=== PATIENT | male | born 1990 | race Caucasian/White ===

== ENCOUNTER 2021-03-01 08:29 | Emergency (ER) | payer OTHER, SELFPAY ==
[2021-03-01 08:38] VITALS: BP 126/86; PULSE 90; RESP 16; TEMP 37; O2SAT 100
--- NOTE | 2021-03-01 09:09 | ED.GENADULT ---
HPI - General Adult General Chief complaint: Skin/Abscess/Foreign Body Stated complaint: lump on buttocks Time Seen by Provider: 03/01/21 09:04 Source: patient Mode of arrival: ambulatory Limitations: no limitations History of Present Illness HPI narrative: Patient is here for evaluation of a abscess on his buttocks. He said he has had 2 previous abscesses that self resolved. This 1 came up quickly is quite painful, he has had a low-grade temp of 99 7 last night and is feeling nauseous. He is not diabetic, he has no chronic illness. Onset (ago): hour(s) Location: buttocks Radiation: non-radiation Severity: severe Quality: sharp Pain Consistency: constant Relieving factors: none Exacerbating factors: movement Associated symptoms: denies other symptoms Related Data Allergies Allergy/AdvReac Type Severity Reaction Status Date / Time No Known Allergies Allergy Mild Unverified 03/01/21 08:41 Review of Systems Review of Systems: All systems reviewed & are unremarkable except as noted in HPI and below PMFSH Past Medical History Medical History (Updated 03/01/21 @ 10:10 by Terri Sampson PA-C) Dante-rectal abscess Social History Social History (Updated 03/01/21 @ 10:00 by Terri Sampson PA-C) Smoking status: Never smoker Alcohol intake: never Substance use: never Living arrangements: with family Exam Const: General: no acute distress and alert Orientation/consciousness: patient oriented x3 HENMT: Head: normal to inspection Eyes: Pupils: Equal, round and reactive pupils present Resp: Effort & Inspection: normal respiratory effort Auscultation: clear to auscultation bilaterally Cardio: Rate: regular rate Rhythm: regular rhythm GI: Rectal Exam: normal sphincter tone Other: There is a firm abscess to the right of the rectum. There is no palpable mass and internal rectal exam. There is a small area that appears to be fluctuant, the remaining area is firm. Skin: General skin exam: normal color Extrem: General: normal to inspection Psych: Mental Status: mental status grossly normal Course Vital Signs Vital signs: Vital Signs Temperature 37.0 C 03/01/21 08:38 Pulse Rate 90 03/01/21 08:38 Respiratory Rate 16 03/01/21 08:38 Blood Pressure 126/86 03/01/21 08:38 Pulse Oximetry 100 03/01/21 08:38 Temperature 37.0 C 03/01/21 08:38 Pulse Rate 90 03/01/21 08:38 Respiratory Rate 16 03/01/21 08:38 Blood Pressure 126/86 03/01/21 08:38 Pulse Oximetry 100 03/01/21 08:38 Procedures Abscess I/D dante-rectal: Date of Incision: 03/01/21 Time of Incision: 10:00 Side (if applicable): right Local Anesthetic: lidocaine 1% Amount of anesthesia used (mL): 1.5 Technique: incised with #11 blade Amount of fluid expressed (mL): 0 Irrigation: No Medical Decision Making Vital Signs Vital Signs: Vital Signs Temperature 37.0 C 03/01/21 08:38 Pulse Rate 90 03/01/21 08:38 Respiratory Rate 16 03/01/21 08:38 Blood Pressure 126/86 03/01/21 08:38 Pulse Oximetry 100 03/01/21 08:38 Temperature 37.0 C 03/01/21 08:38 Pulse Rate 90 03/01/21 08:38 Respiratory Rate 16 03/01/21 08:38 Blood Pressure 126/86 03/01/21 08:38 Pulse Oximetry 100 03/01/21 08:38 Discharge Plan Discharge Clinical Impression: Dante-rectal abscess Patient Disposition: Home, Self-Care Condition: Stable Instructions: Antibiotic Form, Rectal Abscess (ED) Additional Instructions: Unable to drain your abscess today as it is very firm. Complete your antibiotics as prescribed. Use pain medication carefully. Do sitz bath's 3-4 times a day and attempt to express any material from the area. If not improving by the weekend please call your primary care physician for follow-up appointment. Return to the ED should you have fever greater than 100.4 not responsive to ibuprofen or Tylenol. Prescriptions: New toi
[2021-03-01 10:47] VITALS: BP 127/84; PULSE 88; RESP 16; O2SAT 100
== END 2021-03-01 10:48 | disposition home or self-care (01) ==
PROVIDERS: Emergency Provider Emergency Medicine
DX: K61.1 Rectal abscess (principal)
CPT/HCPCS: 10060; 99282

== ENCOUNTER 2021-12-05 18:29 | Emergency (ER) | payer OTHER, SELFPAY | END 2021-12-05 19:41 | disposition left against medical advice (07) | PROVIDERS: Emergency Provider Internal Medicine Hematology & Oncology | DX: Z53.21 Procedure and treatment not carried out due to patient leaving prior to being seen by health care provider (principal) | CPT/HCPCS: 99199 ==

== ENCOUNTER 2023-01-20 11:31 | Emergency (ER) | payer OTHER, SELFPAY ==
--- NOTE | ~2023-01-20 | XR_ITS ---
XR abdomen/kub 1V 01/20/2023 12:04 INDICATION: Bilateral flank pain. Trace blood in urine. TECHNIQUE: KUB COMPARISON: None FINDINGS: Bowel gas pattern is normal. There is no evidence of free air, mass, organomegaly, ascites or obstruction. No abnormal calculi are seen. The bones appear intact. IMPRESSION: 1: No acute abdominal abnormality identified. Reviewed, dictated and finalized at location A.
[2023-01-20 11:41] VITALS: BP 108/65; PULSE 87; RESP 16; TEMP 36.8; O2SAT 99
--- NOTE | 2023-01-20 11:54 | ED.MALEGU ---
HPI - Male Genitourinary General Chief complaint: Urogenital-Male Stated complaint: UTI Time Seen by Provider: 01/20/23 11:54 Source: patient Mode of arrival: ambulatory Limitations: no limitations History of Present Illness HPI Narrative: 32-year-old male presents with complaint low back pain for 2 days. Concerned he has kidney stone due to dribbling, urinary frequency. No history of kidney stones. Has taken ibuprofen which has helped with pain somewhat. Denies nausea vomiting diarrhea. Afebrile. Denies injury. All Systems reviewed and negative except as noted above. Related Data Allergies Allergy/AdvReac Type Severity Reaction Status Date / Time No Known Allergies Allergy Mild Verified 01/20/23 11:40 Review of Systems Review of Systems: CONSTITUTIONAL: Denies fever, chills, or sweats. EYES: Denies visual changes, redness, or discharge. ENT: Denies rhinorrhea, congestion, sore throat, or otalgia. CARDIOVASCULAR: Denies chest pain, palpitations, or edema. RESPIRATORY: Denies cough or dyspnea. GASTROINTESTINAL: Denies abdominal pain, nausea, vomiting, or diarrhea. GENITOURINARY: frequency, dribbling. Denies dysuria or hematuria. SKIN: Denies rash or itching. MUSCULOSKELETAL: reports back pain. Denies joint pain, or myalgia. NEUROLOGIC: Denies headache, numbness, or weakness. PSYCHIATRIC: Denies anxiety or depression. All other systems reviewed are negative, except as documented in HPI. [facility] Past Medical History Medical History (Updated 01/20/23 @ 12:18 by Urmila Cooper NP) Jeni-rectal abscess Social History Social History (Updated 03/01/21 @ 10:00 by Terri Sampson PA-C) Smoking status: Never smoker Alcohol intake: never Substance use: never Living arrangements: with family Comments At time of signature, agree with nursing past medical, surgical, social and family history. There is no relevant family history pertinent to the presenting complaint. Exam Narrative: GENERAL: This is a well-nourished, well-developed patient, in no apparent distress. HEAD: normocephalic, atraumatic. EYES: PERRL. Sclera clear/white. Vision is grossly intact. EARS: External ears normal NOSE: External nose normal NECK: Neck supple, non-tender without lymphadenopathy, masses or thyromegaly. CARDIOVASCULAR: Regular rate and rhythm without murmurs, gallops, or rubs. RESPIRATORY: Clear to auscultation. Breath sounds equal bilaterally. No wheezes, rales, or rhonchi. GASTROINTESTINAL: Abdomen soft, non-tender, nondistended. Bowel sounds are active. No hepato-splenomegaly, or palpable masses. No guarding. SKIN: warm, Dry, intact with no suspicious lesions or rash, good texture and turgor. NEURO: awake, alert, and oriented to person, place and time. There were no obvious focal neurologic abnormalities. EXTREMITIES: No joint tenderness, effusion, or edema noted. BACK: Nontender without deformity. No CVA tenderness. Course Course Level of Care: Express Care Visit Vital Signs Vital signs: Vital Signs Temperature 36.8 C 01/20/23 11:41 Pulse Rate 87 01/20/23 11:41 Respiratory Rate 16 01/20/23 11:41 Blood Pressure 108/65 01/20/23 11:41 Pulse Oximetry 99 01/20/23 11:41 Oxygen Delivery Room Air 01/20/23 11:41 Temperature 36.8 C 01/20/23 11:41 Pulse Rate 87 01/20/23 11:41 Respiratory Rate 16 01/20/23 11:41 Blood Pressure 108/65 01/20/23 11:41 Pulse Oximetry 99 01/20/23 11:41 Oxygen Delivery Room Air 01/20/23 11:41 reviewed MDM - Male Genitourinary MDM Narrative Medical decision making narrative: KUB negative for kidney stones. Discuss results with patient and explained that x-ray imaging is not the best imaging to see kidney stones. Muscular back pain verses urinary tract infection. Recommend he continue ibuprofen. Will prescribe an antibiotic and send urine culture. Recommend follow-up appoint with primary care physician. Patient is aw
== END 2023-01-20 12:23 | disposition home or self-care (01) ==
PROVIDERS: Emergency Provider Nurse Practitioner Family; PCP Emergency Medicine
DX: N39.0 Urinary tract infection, site not specified (principal); M54.50 Low back pain, unspecified
CPT/HCPCS: 74018; 81003; 87086; 99213; G0463